=== PATIENT | male | born 1945 | race Hispanic/Latino ===

== ENCOUNTER 2019-04-26 09:10 | Outpatient (CLI) | payer MEDICARE ==
--- NOTE | 2019-04-27 10:41 | XRay Report ---
CHEST 2 VIEWS / XR chest routine 2V INDICATION / CLINICAL INFORMATION: ACUTE BRONCHITIS. Dry cough for over a month per patient. COMPARISON: None. FINDINGS: Frontal and lateral chest radiographs demonstrate normal cardiomediastinal silhouette. Korey ar lungs without pleural effusions or CHF. Post-CABG changes, prosthetic heart valve, lower cervical- upper thoracic as also lower thoracic-upper lumbar fusion hardware noted. Small stay suture overlies the right humeral head. Demineralized bones with multilevel thoracic spondylosis/prominent osteophyte s. IMPRESSION: No acute chest process with various postsurgical changes noted, as described. Thank you for the opportunity to participate in this patient's care. Signer Name: Augustina Morlaes Signed: 04/27/2019 10:36 AM Workstation Name: [id number]
== END 2019-04-26 09:11 | disposition home or self-care (01) ==
LOC: SPVIMAG 09:10
PROVIDERS: ATTEND Internal Medicine
DX: J20.8 Acute bronchitis due to other specified organisms (principal); Z95.1 Presence of aortocoronary bypass graft
CPT/HCPCS: 71046